=== PATIENT | male | born 1980 | race Caucasian/White ===

== ENCOUNTER 2017-10-24 22:19 | Emergency (ER) | payer SELFPAY ==
[~2017-10-24] VITALS: Ht 180.3 cm; Wt 82.5 kg
[~2017-10-24 22:19] MED LIST: NAPR550 PO; Z.0.NO CURRENT MEDS
[2017-10-24 22:21] VITALS: BP 148/90; PULSE 85; RESP 20; TEMP 98.8; O2SAT 98
[2017-10-24] MEDS ORDERED: EPIP0.3I IM (22:38)
[2017-10-24 23:44] VITALS: BP 119/66; PULSE 74; RESP 14; O2SAT 97
--- NOTE | 2017-10-25 00:30 | PD ---
HPI Chief Complaint: Allergic/Adverse Reaction Time Seen by Provider: 00:27 Travel History International Travel<30 days: No Contact w/Intl Traveler<30days: No Traveled to known affect area: No History of Present Illness HPI 37-year-old male presents to the emergency department by EMS transport after allergic reaction to shellfish. Patient has known allergy to shellfish and was at a restaurant after ordering a chicken soup identified that he was having some tightness sensation in his throat and identified that the soup was actually chicken and shrimp. Patient states that he started to feel tightness in his throat and felt like he was having some difficulty with speaking EMS was called and patient was noted to have some mild stridor no urticaria was normotensive and was immediately administered epinephrine 1-1000 a 0.3 cc IM dose as well as subsequent IV Solu-Medrol Benadryl and albuterol treatment. Patient denies any history of reactive airways disease. Patient here has no symptoms. Patient was excellent response to medications provided to EMS intervention. Patient admits to drinking alcohol. Patient reports he carries an EpiPen with him at all times he did not have access to it as it was locked in his car and could not get to the medication he felt safely. [facility] Past Medical History Narrative Medical Seafood allergy with anaphylaxis, PVCs, back surgery; occasional alcohol use; nursing notes reviewed Heart Rhythm Problems: Yes (PVC'S) Diminished Hearing: No GERD: Yes Musculoskeletal: Yes ("BROKE MY BACK WHEN I WAS 17") Ulcer: Yes Tetanus Vaccination: > 5 Years Influenza Vaccination: No ?: Not Past Surgical History Surgical History: No Previous Surgery Social History Alcohol Use: Yes (3X weekly ) Tobacco Use: No Substance Use: No Allergies-Medications (Allergen,Severity, Reaction): Coded Allergies: bee venom protein (honey bee) (Verified Allergy, Severe, Anaphylaxis, 10/24) codeine (Verified Allergy, Severe, unknown, 10/24/17) iodine (Verified Allergy, Severe, swelling, 10/24/17) potassium iodide (Verified Allergy, Severe, swelling, 10/24/17) povidone-iodine (Verified Allergy, Severe, swelling, 10/24/17) sodium iodide (Verified Allergy, Severe, swelling, 10/24/17) sodium iodide (Verified Allergy, Severe, swelling, 10/24/17) peas (Verified Allergy, Intermediate, HIVES, 10/24/17) Fish Containing Products (Verified Allergy, Mild, 10/24/17) Reported Meds & Prescriptions Reported Meds & Active Scripts Active Epipen 2-Zak Inj (Epinephrine) 0.3 Mg/0.3 Ml Pfpen 0.3 Mg IM ONCE PRN Medrol Dosepak (Methylprednisolone) 4 Mg Dspk 4 Mg PO DIRECTED Per Pharmacist direction Reported Epipen 2-Zak Inj (Epinephrine) 0.3 Mg/0.3 Ml Pfpen 0.3 Mg IM ONCE PRN Review of Systems Except as stated in HPI: all other systems reviewed are Neg General / Constitutional: No: Fever, Chills HENT: No: Congestion Cardiovascular: No: Chest Pain or Discomfort Respiratory: Positive: Cough, Shortness of Breath, Wheezing Gastrointestinal: No: Nausea, Vomiting Genitourinary: No: Dysuria Musculoskeletal: No: Myalgias, Arthralgias Skin: No Rash, No Hives Neurologic: No: Weakness, Dizziness, Syncope Psychiatric: No: Anxiety Hematologic/Lymphatic: No: Easy Bruising Physical Exam Narrative GENERAL: Well-developed well-nourished male no acute distress no respiratory distress no stridor no hoarseness. SKIN: Warm and dry. No rash no urticaria HEAD: Normocephalic. EYES: No scleral icterus. No injection or drainage. NECK: Supple, trachea midline. No JVD or lymphadenopathy. CARDIOVASCULAR: Regular rate and rhythm without murmurs, gallops, or rubs. RESPIRATORY: Breath sounds equal bilaterally. No accessory muscle use. Lung sounds clear to auscultation. No accessory muscle use. GASTROINTESTINAL: Abdomen soft, non-tender, nondistended. MUSCULOSKELETAL: No cyanosis, or edema. BACK: Nontender without obvious deformity. No CVA tenderness. Data Data Last Documented VS Vital Signs Date Time Temp Pulse Resp B/P (MAP) Pulse Ox O2 Delivery O2 Flow Rate FiO2 10/25/17 01:07 10/25/17 00:49 83 14 100 Room Air 10/24/17 22:21 98.8 Orders Orders Ed Discharge Order (10/25/17 00:59) MDM Medical Decision Making Medical Screen Exam Complete: Yes Emergency Medical Condition: Yes Medical Record Reviewed: Yes Differential Diagnosis Allergic reaction anaphylaxis angioedema Narrative Course Patient placed on equipment monitor phototypesetting with continuous pulse oximetry IV access obtained by EMS; patient asymptomatic and being observed in the emergency department to evaluate for possible rebound symptoms after epinephrine clearance Diagnosis Primary Impression: Acute allergic reaction Referrals: Primary Care Physician 1 day Patient Instructions: General Instructions Additional Instructions: Increase fluid hydration Avoid seafood Take medications as prescribed Return immediately to the emergency department for any recurrent symptoms No work 1 day Med/Other Pt SpecificInfo: Prescription(s) given Scripts Epinephrine Inj (Epipen 2-Zak Inj) 0.3 Mg/0.3 Ml Pfpen 0.3 MG IM ONCE Y for ALLERGIC REACTION, #1 PACK 1 Refill Prov: Selma Macias MD 10/25/17 Methylprednisolone Dosepak (Medrol Dosepak) 4 Mg Dspk 4 MG PO DIRECTED, #1 DSPK 0 Refills Per Pharmacist direction Prov: Selma Macias MD 10/25/17 Disposition: 01 DISCHARGE HOME Condition: Stable Selma Macias MD October 25, 2017 00:30
[2017-10-25 00:49] VITALS: BP 112/68; PULSE 83; RESP 14; O2SAT 100
[2017-10-25] MEDS ORDERED: MEDR4PAK PO (01:00)
[2017-10-25] MEDS ORDERED: EPIP0.3I IM (01:00)
== END 2017-10-25 01:12 | disposition home or self-care (01) ==
LOC: PHED 22:19
DX: T78.1XXA Other adverse food reactions, not elsewhere classified, initial encounter (principal)
CPT/HCPCS: 99283